=== PATIENT | male | born 1965 | race Caucasian/White ===

== ENCOUNTER 2023-05-28 11:38 | Emergency (ER) | payer BC, SELFPAY ==
[2023-05-28 11:41] VITALS: BP 137/85; BMI 24.1
--- NOTE | 2023-05-28 11:43 | ED.GENMED ---
History of Present Illness
General
Chief Complaint: Chest Pain
Source: patient
Exam Limitations: none
Time Seen by Provider: 05/28/23 11:40
Nursing documentation reviewed up to this point in time: agreed with
History of Present Illness
History of Present Illness:
57-year-old male history of PAF, was on vacation in [place] developed GI type illness nausea vomiting diarrhea seen at the hospital received fluids and Thad was aggressive to resting one of the A-fib soon after that he took Eliquis and metoprolol
woke up the next morning and sinus rhythm he contacted his operations clerk, due to monitoring his progress as an outpatient, today he called me states he has been having some pain in his chest into his shoulders, mild intensity, had similar before when
he had A-fib although he was cardioverted at that time,
Past History
Past History
ED Past Medical History: Arrthythmia
Social History
Personal:
Living: with family
Employment: Employed
Review of Systems
Review of Systems
All Other Systems: Not applicable
Cardiac: Reports chest pain
Phy Exam
Physical Exam
Physical Exam:
Physical Exam
General: no apparent distress, not acutely ill
Neck: No jaundice
Heart: s1/s2 regular rate and rhythm, no murmur. equal radial pulses.
Lungs: no acute respiratory distress. clear bilaterally
Abdomen: Nontender
Neuro: alert and oriented. no focal neurological deficits
Skin: no rash
Psychiatric: well kept. interactive and cooperative
Extremities: no edema.
Scores
Heart Score for Chest Pain Patients
STEMI patient?: No
History: Slightly or Non-Suspicious
ECG: Normal
Age: >45 - <65 years
Risk Factors: No Risk Factors
Troponin: </= Normal Limit
Heart Score for Chest Pain Patients: 1
Heart Score Risk: 2.5% MACE over next 6 weeks
Course
Orders/Labs/Results
Orders:
Orders
05/28/23 11:40
Electrocardiogram (*1) Stat
Reason for Study: Other
Other Reason for Exam: chest pain
Electrocardiogram (*1) Urgent
Reason for Study: Chest Pain
Cardiac Monitoring- Treatment ONCE
EKG- Treatment ONCE
05/28/23 11:41
Echo 2D MMode Color/Doppler Urgent
Reason for Study: chest pain
Comment: dca patient
EKG- Treatment ONCE
CR Chest Portable - 1 View Urgent
Comment:
Reason For Exam: cp
Reason Study Needs to be Portable: Patient Unstable
05/28/23 12:01
CRP [C-Reactive Protein] Urgent
Complete Blood Count/With Diff Routine
Comprehensive Metabolic Panel Routine
ESR [Erythrocyte Sed Rate] Urgent
Lipase Urgent
Magnesium Urgent
TSH Urgent
Troponin I Routine
05/28/23 13:01
Ibuprofen [Motrin] 600 mg PO NOW STA
Abnormal Lab Results
05/28/23
12:01
MCH 31.4 H pg
(27.0-31.0)
Abs Immat Gran (auto) 0.1 H 10^3/uL
(0-0.05)
Immature Gran % 1.6 H %
(0-0.5)
05/28/23 12:01
05/28/23 12:01
Vital Signs
Initial and Last Documented VS:
Initial Vital Signs
Temp Pulse Resp BP
98.1 F 59 10 137/85
05/28/23 11:41 05/28/23 11:41 05/28/23 11:41 05/28/23 11:41
Last Documented Vital Signs
Temp Pulse Resp BP
98.1 F 53 10 128/87
05/28/23 11:41 05/28/23 12:00 05/28/23 12:00 05/28/23 12:00
*Critical Care Note
Total Time (30-74mins, 75-104mins- exclusive of procedures): Not Applicable
Update Note
Update Note:
Update patient peers comfortable he has an undetectable troponin, nonischemic EKG echocardiogram has been completed
Outpatient plan of care from cardiology will wean off his Eliquis and metoprolol start NSAIDs
ED Attending Note
-
Portions of this chart may have been created with voice recognition software.� Occasional wrong word or��sound alike� substitutions may have occurred due to the inherent limitations of voice recognition software.
Discharge Plan
Departure
Patient Disposition: Home (Routine Discharge)
Date of Disposition: 05/28/23
Time of Disposition: 13:14
Patient with high blood pressure during this ER visit?: No
Condition: Good
Discharge Problem:
Chest pain
Instructions: Chest Pain DCA Follow Up
Prescriptions:
No Action
Eliquis 5 mg tablet
5 mg PO BID Qty: 60 0RF
metoprolol succinate [Toprol XL] 50 mg tablet extended release 24 hr
50 mg PO DAILY Qty: 30 0RF
Referrals:
Nelson Wong, DO [Family Provider] -
Interventions
Interventions:
*Risk Screen - Suicide Last Done: 05/28/23 11:41
*General Assessment Last Done: 05/28/23 11:41
*Neglect/Abuse Screening Last Done: 05/28/23 11:41
ED- Fall Risk Assessment Last Done: 05/28/23 11:51
*ED COVID-19 Vaccine History Last Done: 05/28/23 11:41
ED- Cardiac Assessment Last Done: 05/28/23 11:51
[2023-05-28 11:44] VITALS: BP 137/85
[2023-05-28 12:00] VITALS: BP 128/87
[2023-05-28 12:15] LABS: % Basophils 0.7 % (0-2); % Eosinophils 0.8 % (0-6); % Immature Granulocytes 1.6 % (0-0.5); % Lymphocytes 21.6 % (20.5-51.1); % Monocytes 7.8 % (1.7-9.3); % Neutrophils 67.5 % (42.2-75.2); Absolute Basophils 0.1 10^3/uL (0-0.2); Absolute Eosinophils 0.1 10^3/uL (0-0.7); Absolute Immature Granulocytes 0.1 10^3/uL (0-0.05); Absolute Lymphocytes 1.6 10^3/uL (1.2-3.4); Absolute Monocytes 0.6 10^3/uL (0.1-0.6); Absolute Neutrophils 5.1 10^3/uL (1.4-6.5); Hematocrit 42.1 % (39.0-52.0); Hemoglobin 15.3 g/dL (13.0-18.0); Mean Corp Hgb Conc. 36.3 g/dL (33.0-37.0); Mean Corpuscular Hgb 31.4 pg (27.0-31.0); Mean Corpuscular Volume 86.4 fL (80.0-94.0); Mean Platelet Volume 9.2 fL (7.4-10.4); Nucleated Red Blood Cells % 0 % (-); Platelet Count 185 10^3/uL (130-400); Red Blood Cell Count 4.87 10^6/uL (4.70-6.10); Red Cell Dist. Width 11.9 % (11.5-14.5); White Blood Cell Count 7.5 10^3/uL (4.8-10.8)
[2023-05-28 12:25] LABS: Erythrocyte Sed Rate 2 mm/hour (0-20)
[2023-05-28 12:32] LABS: ALT (SGPT) 46 U/L (0-50); AST (SGOT) 56 U/L (17-59); Albumin 4.5 g/dl (3.5-5.0); Alkaline Phosphatase 66 U/L (38-126); Blood Urea Nitrogen 14 mg/dl (9-20); Calcium 9.2 mg/dl (8.4-10.2); Carbon Dioxide 23 mmol/L (22-30); Chloride 106 mmol/L (98-107); Estimated Creatinine Clearance 96 ml/min; Glucose 92 mg/dl (70-99); Lipase 97 U/L (23-300); Potassium 3.9 mmol/L (3.5-5.1); Sodium 137 mmol/L (135-145); Total Bilirubin 1.2 mg/dl (0.2-1.3); eGFR > 60.00
--- NOTE | 2023-05-28 12:34 | CON.CAR ---
Consultation
Consultation Request
Date/Time Consultation Requested: May 28, 2023
Date/Time Consultation Performed: May 28, 2023
Requesting Provider: Reji
Performing Provider: Noe
Reason for Consultation: Chest pain
Medical History
-
Chief Complaint: Chest pain
History of Present Illness:
57-year-old male who is well-known to me for paroxysmal atrial fibrillation. Normal echocardiogram in summer 2022 as well as stress echocardiogram in October 2022 with prior paroxysmal atrial fibrillation which is self terminating. The patient was
on a trip to [place] and had a severe viral gastroenteritis requiring ER visit for IV fluids and then was discharged from the emergency department. 2 days later he went into atrial fibrillation during a jeep tour and felt concomitant onset of 2-4
out of 10 chest symptoms which felt like a pulled muscle to him. He did have a rutherford prior to the onset of atrial fibrillation. Atrial fibrillation self converted although he did travel with his oral anticoagulation and initiated both apixaban
and Toprol XL 50 while in [place] and continued through today which is day 5 of therapy. He has remained in sinus rhythm without any recurrence. He presents to the ER today for ongoing chest heaviness which was improved with Advil.
Past Medical History
Past Medical History: Arrhythmias
Past Surgical History: None
Social History
Tobacco: Non-Smoker
Alcohol: Occasional
Drug: None
Personal:
Living: With Family
Employment: Employed
Family History
Family History: Reviewed & Not Pertinent
Allergies / Home Medications
Allergy/AdvReac Type Severity Reaction Status Date / Time
No Known Allergies Allergy Verified 08/25/22 23:14
Medication Instructions Recorded Confirmed Type
apixaban 5 mg tablet (Eliquis) 5 mg PO BID #60 tabs 08/26/22 Rx
metoprolol succinate 50 mg 50 mg PO DAILY #30 tabs 08/26/22 Rx
tablet,extended release 24 hr
(Toprol XL)
Review of Systems
-
All other systems: Negative unless noted
Cardiac: Chest Pain and Palpitations
Physical Exam
Vital Signs
Temp Pulse Resp BP
98.1 F 53 10 128/87
05/28/23 11:41 05/28/23 12:00 05/28/23 12:00 05/28/23 12:00
Lab Results
05/28/23 12:01
05/28/23 12:01
Physical Exam
General: Well Developed and Well Nourished
HEENT: Normocephalic
Respiratory: Clear
Cardiac: S1/S2 and Regular Rhythm
Breast: Deferred by me
GI: Soft, Non Tender and Non Distended
Rectal: Deferred by Provider
Musculoskeletal: No Clubbing, No Cyanosis and No Edema
Skin: Warm and Dry
Neuro: Awake, Alert and Oriented
Hematologic/Lymphatic: No Lymphadenopathy
Psych: Calm
Impression / Plan
-
Impression:
Paroxysmal atrial fibrillation
Chest pain�atypical and suspect mild pericarditis
Recent viral gastroenteritis
Prior stress echocardiogram negative for ischemia
Prior echocardiogram structurally normal heart
Pill in pocket oral anticoagulation
Plan:
-Check troponins in the emergency department to rule out myocardial ischemia
-Reviewed ECG which is stable compared to baseline with a normal VA interval without evidence of preexcitation
-Echocardiogram preliminary in the emergency department demonstrates no pericardial effusion with normal ejection fraction and no evidence of focal or regional wall motion abnormality which in the setting of chest pain is reassuring that there is no
active ischemia
-I discussed stopping Eliquis and metoprolol this evening and initiating Motrin 600 mg every 8 hours for the next 3 to 5 days and he will check up with me in 2 days via phone or text message to discuss next steps in management and to assess his
overall response to anti-inflammatory medications
-Discussed plan of care with emergency department and Dr. Mendoza
Data Reviewed
-
EKG: Tracing Personally Visualized and interpreted
Radiology: Image Personally Visualized and interpreted
Medical Tests (Nuc Med, Echo etc): Report Reviewed by me
Labs: Labs Reviewed by me
Old Records: Reviewed
[2023-05-28 12:39] LABS: Troponin I < 0.012 ng/ml
[2023-05-28 13:03] LABS: TSH 1.03 uIU/ml (0.47-4.68)
[2023-05-28] MEDS: MOTRIN 600 MG PO (13:13)
[2023-05-28 13:15] VITALS: BP 121/83
== END 2023-05-28 13:20 | disposition home or self-care (01) ==
LOC: EMR 11:38
PROVIDERS: EMERGENCY PHYSICIAN Emergency Medicine; FAMILY PHYSICIAN Internal Medicine; OTHER PHYSICIAN Internal Medicine Cardiovascular Disease
DX: R07.89 Other chest pain (principal); I48.0 Paroxysmal atrial fibrillation; Z79.01 Long term (current) use of anticoagulants
CPT/HCPCS: 99284; 71045; 80053; 83690; 83735; 84443; 84484; 85025; 85652; 86140; 93005; 93306

== ENCOUNTER → 2023-08-13 07:03 | Outpatient (REF) | payer BC, SELFPAY ==
[2023-08-13 09:08] LABS: Urine Albumin Negative (Neg - Trace); Urine Bilirubin Negative (Negative); Urine Character Clear (Clear); Urine Color Yellow; Urine Glucose Negative (Negative); Urine Ketone Negative (Negative); Urine Leukocyte Negative (Negative); Urine Nitrite Negative (Negative); Urine Occult Blood Negative (Negative); Urine Specific Gravity 1.015 (<1.030); Urine Urobilinogen Negative (Neg - 1+)
[2023-08-13 09:09] LABS: % Basophils 1.2 % (0-2); % Eosinophils 3.9 % (0-6); % Immature Granulocytes 0.6 % (0-0.5); % Lymphocytes 32.5 % (20.5-51.1); % Monocytes 8.8 % (1.7-9.3); Absolute Basophils 0.1 10^3/uL (0-0.2); Absolute Eosinophils 0.2 10^3/uL (0-0.7); Absolute Lymphocytes 1.7 10^3/uL (1.2-3.4); Absolute Monocytes 0.5 10^3/uL (0.1-0.6); Absolute Neutrophils 2.7 10^3/uL (1.4-6.5); Hematocrit 43.3 % (39.0-52.0); Hemoglobin 15.4 g/dL (13.0-18.0); Mean Corp Hgb Conc. 35.6 g/dL (33.0-37.0); Mean Corpuscular Hgb 31.4 pg (27.0-31.0); Mean Corpuscular Volume 88.2 fL (80.0-94.0); Mean Platelet Volume 9.4 fL (7.4-10.4); Nucleated Red Blood Cells % 0 % (-); Platelet Count 174 10^3/uL (130-400); Red Blood Cell Count 4.91 10^6/uL (4.70-6.10); Red Cell Dist. Width 12.4 % (11.5-14.5); White Blood Cell Count 5.1 10^3/uL (4.8-10.8)
[2023-08-13 10:48] LABS: ALT (SGPT) 19 U/L (0-50); AST (SGOT) 22 U/L (17-59); Albumin 4.4 g/dl (3.5-5.0); Alkaline Phosphatase 53 U/L (38-126); Blood Urea Nitrogen 17 mg/dl (9-20); Calcium 9.6 mg/dl (8.4-10.2); Carbon Dioxide 25 mmol/L (22-30); Chloride 106 mmol/L (98-107); Glucose 96 mg/dl (70-99); HDL Cholesterol 78 mg/dl; LDL Cholesterol, Calculated 95 mg/dl; Potassium 4.4 mmol/L (3.5-5.1); Sodium 139 mmol/L (135-145); Total Bilirubin 0.9 mg/dl (0.2-1.3); Total Cholesterol 183 mg/dl (50-199); Total Protein 6.7 g/dl (6.3-8.2); Triglyceride 53 mg/dl (10-149); Very Low Density Lipoprotein 10 mg/dl (0-30); eGFR > 60.00
[2023-08-13 11:01] LABS: Vitamin D, 25-OH*** 47.6 ng/mL (30-80)
[2023-08-13 11:15] LABS: PSA, Total - Screen 0.96 ng/ml (0.0-4.0); TSH 1.64 uIU/ml (0.47-4.68)
== END ==
LOC: HWLAB 07:03
PROVIDERS: ATTENDING PHYSICIAN Internal Medicine
DX: Z12.5 Encounter for screening for malignant neoplasm of prostate (principal); I48.0 Paroxysmal atrial fibrillation; E78.2 Mixed hyperlipidemia; R79.89 Other specified abnormal findings of blood chemistry
CPT/HCPCS: 36415; 80053; 80061; 81003; 82306; 84443; 85025; G0103

== ENCOUNTER → 2024-06-23 05:18 | Outpatient (REF) | payer BC, SELFPAY | LOC: CLAB 05:18 | PROVIDERS: ATTENDING PHYSICIAN Dermatology | DX: D48.5 Neoplasm of uncertain behavior of skin (principal) | CPT/HCPCS: 88305 ==

== ENCOUNTER → 2024-10-02 07:24 | Outpatient (REF) | payer BC, SELFPAY ==
[2024-10-02 08:46] LABS: Hematocrit 42.4 % (39.0-52.0); Hemoglobin 14.8 g/dL (13.0-18.0); Mean Corp Hgb Conc. 34.9 g/dL (33.0-37.0); Mean Corpuscular Volume 89.3 fL (80.0-94.0); Nucleated Red Blood Cells % 0 % (-); Platelet Count 172 10^3/uL (130-400); Red Cell Dist. Width 12.1 % (11.5-14.5)
[2024-10-02 09:26] LABS: ALT (SGPT) 14 U/L (0-50); AST (SGOT) 16 U/L (17-59); Albumin 4.5 g/dl (3.5-5.0); Alkaline Phosphatase 48 U/L (38-126); Blood Urea Nitrogen 21 mg/dl (9-20); Calcium 9.5 mg/dl (8.4-10.2); Carbon Dioxide 26 mmol/L (22-30); Chloride 107 mmol/L (98-107); Glucose 84 mg/dl (70-99); HDL Cholesterol 65 mg/dl; LDL Cholesterol, Calculated 107 mg/dl; Potassium 4.8 mmol/L (3.5-5.1); Sodium 138 mmol/L (135-145); Total Protein 6.6 g/dl (6.3-8.2); Very Low Density Lipoprotein 9 mg/dl (0-30); eGFR > 60.00
[2024-10-02 09:44] LABS: Vitamin D, 25-OH*** 32.4 ng/mL (30-80)
[2024-10-02 09:57] LABS: PSA, Total - Screen 0.80 ng/ml (0.0-4.0); TSH 2.14 uIU/ml (0.47-4.68)
== END ==
LOC: REG 07:24
PROVIDERS: ATTENDING PHYSICIAN Internal Medicine
DX: R79.89 Other specified abnormal findings of blood chemistry (principal); Z12.5 Encounter for screening for malignant neoplasm of prostate; I48.0 Paroxysmal atrial fibrillation; E78.2 Mixed hyperlipidemia
CPT/HCPCS: 36415; 80053; 80061; 82306; 84443; 85025; G0103

== ENCOUNTER → 2024-12-16 08:48 | Outpatient (REF) | payer BC, SELFPAY | LOC: DHSLP 08:48 | PROVIDERS: ATTENDING PHYSICIAN Internal Medicine | DX: G47.30 Sleep apnea, unspecified (principal); R06.83 Snoring | CPT/HCPCS: 95800 ==